=== PATIENT | male | born 1960 | race Caucasian/White ===

== ENCOUNTER 2024-07-27 08:15 | Emergency (ER) | payer MEDICARE, SELFPAY ==
[2024-07-27 08:28] VITALS: BP 159/68; PULSE 120; RESP 18; TEMP 36.7; O2SAT 100
--- NOTE | 2024-07-27 08:34 | ED.EYEPROB ---
HPI - Eye Problem General Chief complaint: Eye Problems Stated complaint: RT Eye irritation Time Seen by Provider: 07/27/24 08:20 Source: patient Mode of arrival: ambulatory Limitations: no limitations History of Present Illness HPI Narrative: Here for one week history of right eye redness. He reports about one week ago that he had yawned and felt something around the right eye pop. He denies pain, itching, feeling of something in the eye. He denies any drainage or fevers. He reports he has been rubbing it too much. He reports some redness around the eye. He reports that over time and with frequently rubbing the eye, his vision has become cloudy. He denies any other complaints or concerns today. Related Data Allergies Allergy/AdvReac Type Severity Reaction Status Date / Time No Known Allergies Allergy Unknown Verified 07/27/24 08:29 Review of Systems Review of Systems: CONSTITUTIONAL: Denies fever, chills, or sweats. EYES: Reports visual changes and redness in the right eye. Denies eye discharge, itch, or pain. Denies feeling of foreign object in eye. ENT: Denies rhinorrhea, congestion, sore throat, or otalgia. CARDIOVASCULAR: Denies chest pain, palpitations, or edema. RESPIRATORY: Denies cough or dyspnea. GASTROINTESTINAL: Denies abdominal pain, nausea, vomiting, or diarrhea. GENITOURINARY: Denies dysuria or hematuria. SKIN: Denies rash or itching. MUSCULOSKELETAL: Denies back pain, joint pain, or myalgia. NEUROLOGIC: Denies headache, numbness, or weakness. PSYCHIATRIC: Denies anxiety or depression. All other systems reviewed are negative, except as documented in HPI. Exam Narrative: GENERAL: This is a well-nourished, well-developed patient, in no apparent distress. HEAD: normocephalic, atraumatic. EYES: PERRL. Sclera left clear/white. Sclera redness in right eye. Periorbital patches of erythema. No edema. EARS: External ears normal. Hearing grossly intact. NOSE: External nose normal no rhinorrhea. NECK: Trachea midline. CARDIOVASCULAR: Regular rate and rhythm without murmurs, gallops, or rubs. RESPIRATORY: Clear to auscultation. Breath sounds equal bilaterally. No wheezes, rales, or rhonchi. SKIN: warm, Dry, intact with no suspicious lesions or rash, good texture and turgor. NEURO: awake, alert, and oriented to person, place and time. There were no obvious focal neurologic abnormalities. EXTREMITIES: No joint tenderness, effusion, or edema noted. BACK: Nontender without deformity. Course Course Level of Care: Express Care Visit Vital Signs Vital signs: Vital Signs Temperature 36.7 C 07/27/24 08:28 Pulse Rate 120 H 07/27/24 08:28 Respiratory Rate 18 07/27/24 08:28 Blood Pressure 159/68 H 07/27/24 08:28 Pulse Oximetry 100 07/27/24 08:28 Oxygen Delivery Room Air 07/27/24 08:28 Temperature 36.7 C 07/27/24 08:28 Pulse Rate 120 H 07/27/24 08:28 Respiratory Rate 18 07/27/24 08:28 Blood Pressure 159/68 H 07/27/24 08:28 Pulse Oximetry 100 07/27/24 08:28 Oxygen Delivery Room Air 07/27/24 08:28 Reviewed. Patient reports he gets nervous for appointments and his BP and pulse go up. He reports his PCP is aware that this is his normal. MDM - Eye Problem MDM Narrative Medical decision making narrative: Right eye with sclera redness. No periorbital edema. Denies any pain or itching. Endorses he has been rubbing his eye a lot. No foreign body feeling. No discomfort in the eye. Discharge Plan Discharge Clinical Impression: Allergic conjunctivitis Qualifiers: Laterality: right Qualified Code(s): H10.11 - Acute atopic conjunctivitis, right eye Patient Disposition: Home Condition: Stable Instructions: Conjunctivitis (ED) Additional Instructions: Take medications as prescribed.? Follow printed instructions provided. Follow-up with eye doctor such as [facility]. Go to the ER for any worsening symptoms or concerns. Patient Language: Marshallese Prescriptions: New azelastine 0.05 % drops 1 drp EACH EYE BID Qty: 6 0RF Follow-up/Referrals: Darren,DO Titus [Primary Care Provider] - Time of Disposition: 08:50
--- OUTSIDE RECORDS SUMMARY | 2024-07-27 08:44 | XMS_ITS | Clinical Summary ---
Author Organization [facility] Address [address] [place] [id number] Care Team Providers Care [employer] Vice Principal Name Role Phone Titus Banks DO Primary Care Provide r Sukhjinder Limon MD Unavailable [phone] Allergies No known active allergies Medications hydroCHLOROthia zide (HYDRODIURIL) 12.5 mg tablet Take 1 tablet (12.5 mg total) by mouth every morning 06/11/2023 Active lisinopriL (PRINIVIL,ZESTR IL) 40 mg tablet Take 1 tablet (40 mg total) by mouth daily 06/13/2023 Active piroxicam (FELDENE) 20 mg capsule Take 1 capsule (20 mg total) by mouth daily 05/20/2023 Active Active Problems Problem Noted Date Diagnosed Date Positive colorectal cancer screening using Colog uard test 02/18/2023 Left nephrolithiasis 01/31/2018 Systolic murmur 01/21/2018 Increased glucose level 12/25/2017 Motion sickness 05/22/2016 Arthritis 09/18/2013 Hypertension 09/18/2013 Knee pain 09/18/2013 Immunizations Immunization Administration Dates Next Due Influenza, Quadrivalent, Spl it, Preservative Free, Intramuscular 03/11/2019,02/18/2015 Influenza, Trivalent, High D ose, Split, Preservative Free, Intramuscular 02/24/2018 Tdap 03/11/2019 Social History Tobacco Use Types Packs/Day Years Used Date Smoking Tobacco: Never Tobacco Cessation:Counseling Given: Not Answered Personal Safety Answer Date Recorded Getting School Help Needed Not on file 04/12 Sex and Gender Information Value Date Recorded Sex Assigned at Not on file Legal Sex Male 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 Gender Identity Not on file Sexual Orientation Not on file Obstetrics History Last Filed Vital Signs Vital Sign Reading Time Taken Comments Blood Pressure - - Pulse - - Temperature - - Respiratory Rate - - Oxygen Saturation - - Inhaled Oxygen Concentration - - Weight 73.5 kg (162 lb) 06/28/2023 8:15 AM CDT Height 172.7 cm (5' 8 ) 06/28/2023 8:15 AM CDT Body Mass Index 24.63 06/28/2023 8:15 AM CDT Plan of Treatment Health Maintenance Due Date Last Done Comments Colon Cancer Screening-Colonoscopy 1958 Depression Screening 1958 Fall Risk Assessment 1958 Hepatitis C Screening 1958 Prostate Cancer Screening-PSA 1958 Hepatitis B Screening 1976 Pneumococcal vaccine 65+ (1 of 1 - PCV) 2008 Zoster Vaccine (1 of 2) 2008 Abdominal Aortic Aneurysm (A AA) Screen 2023 Well Visit 65+ 2023 Covid-19 Vaccine ( season) 2023, 02/02/2021 Influenza Vaccine (Season Ended) 2024 03/11/2019, 02/24/2018, 02/18/2015 DTaP/Tdap/Td Vaccine (2 - Td or Tdap) 03/11/202907/2018 Insurance MEDICARE [facility] MEDICARE Care Teams High School Vice Principal Relationship Specialty Start Date End Date Titus Banks DO [address] [place] [address] [phone] PCP - General Family Medicine 02/27/23 Sukhjinder Limon MD [address] [place] [address] [place] [address] Orthopedic Surgery 02/27/23
--- OUTSIDE RECORDS SUMMARY | 2024-07-27 08:44 | XMS_ITS | Clinical Summary ---
Author Organization [facility] Address [address] [place] [address] Care Team Providers Care Finisher Card Tender Name Role Phone Tha Montes MD Unavailable [phone] Titus Banks DO Primary Care Provider + Allergies No known active allergies Medications lisinopril (PRINIVIL) 40 MG tabletIndications:E ssential hypertension take 1 tablet by mouth every day 90 tablet 1 4 Active rosuvastatin (CRESTOR) 5 MG tabletIndications:H yperlipidemia, unspecified hyperlipidemia type TAKE 1 TABLET BY MOUTH NIGHTLY AT BEDTIME. 90 tablet 5 Active piroxicam (FELDENE) 20 MG capsuleIndications: Arthritis TAKE 1 CAPSULE BY MOUTH EVERY DAY 90 capsule 1 5 Active hydroCHLOROthiazide (MICROZIDE) 12.5 MG tabletIndications:E ssential hypertension TAKE 1 TABLET BY MOUTH EVERY MORNING 90 tablet 5 Active Active Problems Problem Noted Date Diagnosed Date Positive colorectal cancer screening using Colog uard test 02/18/2023 BMI 25.0-25.9,adult 03/11/2019 Left nephrolithiasis 01/31/2018 Systolic murmur 01/21/2018 Increased glucose level 12/25/2017 Motion sickness 05/22/2016 Arthritis 09/18/2013 Hypertension 09/18/2013 Knee pain 09/18/2013 Resolved Problems Problem Noted Date Diagnosed Date Resolved Date Encounter for screening for lipid disorder 02/18/2015 12/18/2019 Encounter for screening for other suspected endocrine disorder 02/18/2015 12/18/2019 Influenza vaccine needed 02/18/201502/2020 Encounters Date Type Department Care Team Description 07/06/2024 7:00 AM CDT Office Visit [facility] [address] [address] Titus Banks P, DO Hypertension; Hyperlipidemia (6 month f/u) 07/06/2024 Travel 07/01/2024 Patient Outreach [facility] [address] [address] Titus Banks, DO Pre-visit Gap Closure from Last 3 Months Immunizations Immunization Administration Dates Next Due Fluzone 6 Months+ Quad (0.5 mL Prefilled Syringe ) 07/04/2023,03/11/2019 Fluzone High Dose - >Age 65 (Prefilled Syringe) 02/24/2018 Influenza Adult (Generic) 02/18/2015 PFIZER COVID-19 (ORIGINAL FO RMULATION, PURPLE CAP) mRNA, LNP-S, PF, 30 MCG/0.3 ML DOSE 02/23/2021,02/02/2021 Pneumococcal (Prevnar 20) 07/04/2023 Tdap (Boostrix) 03/11/2019 Family History Medical History Relation Comments Heart Attack Brother Heart Attack Father Hypertension Father Breast Cancer Mother stomach cancer Mother Diabetes Other Hypertension Other Stroke Other Relation Status Comments Brother (Age 70) Father Mother Other Social History Tobacco Use Types Packs/Day Years Used Date Smoking Tobacco: Never Passive Smoke Exposure: Never Smokeless Tobacco: Never Tobacco Cessation:Counseling Given: Not Answered Comments:Never Smoked Alcohol Use Standard Drinks/Week Comments No 0 (1 standard drink = 0.6 oz pur e alcohol) none AUDIT-C Answer Date Recorded Frequency of Alcohol Consumption Never 02/24/2018 Average Number of Drinks Not on file 018 Frequency of Binge Drinking Not on file 02/06 PHQ-2 Answer Date Recorded Patient Health Questionnaire-2 Score 0 07/06/2024 Sex and Gender Information Value Date Recorded Sex Assigned at Male 05/23/2018 11:40 AM SYSTEMS SECURITY ANALYST Legal Sex Male 8:44 PM CDT Gender Identity Male 05/23/2018 11:40 AM SYSTEMS SECURITY ANALYST Sexual Orientation Straight 05/23/2018 11 :40 AM SYSTEMS SECURITY ANALYST 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 on file Not on file Not on file Last Filed Vital Signs Vital Sign Reading Time Taken Comments Blood Pressure 130/78 07/06/2024 7:11 AM CDT Pulse 70 07/06/2024 7:11 AM CDT Temperature 36.5 C (97.7 F) 07/06/2024 7:11 AM CDT Respiratory Rate 16 07/06/2024 7:11 AM CDT Oxygen Saturation 95% 07/06/2024 7:11 AM CDT Inhaled Oxygen Concentration - - Weight 76.2 kg (168 lb) 07/06/2024 7:11 AM CDT Height 172.7 cm (5' 8 ) 07/06/2024 7:11 AM CDT Body Mass Index 25.54 07/06/2024 7:11 AM CDT Plan of Treatment Upcoming Encounters Date Type Department Care Team (Late st Contact Info) Description 01/07/2025 7:20 AM CDT Laboratory Only [facility] [address] [address] Titus Banks, [facility] [place] [address] 01/14/2025 7:00 AM CDT Office Visit [facility] [address] [phone] Titus Banks DO [address] [place] [address] Health Maintenance Due Date Last Done Comments Annual Medicare Wellness Visit 2023 COVID-19 Vaccine (2023-2 5 season) 2025 02/23/2021, 02/02/2021 Postponed from 12/08/2023 (Going to Outside Clinic) Zoster Vaccines (1 of 2) 01/05/2025 Pos tponed from 2008 (Going to Outside Clinic) Colorectal Cancer Screening Colonoscopy (10 Years) 03/15/2026 03/15/2023 DTaP, Tdap and Td Vaccines ( 2 - Td or Tdap) 03/11/2029 03/11/2019 RSV Immunization or 60+ Years (1 - 1-dose 75+ series) 2033 Hepatitis C Completed 04/13/2019 Colorectal Cancer Screening FIT-DNA (3 Years) Discontinued 11/08/2022, 11/08/2022, 05/18/2019 Pneumococcal Vaccine: 50+ Years Completed 07/04/2023 PHQ-2 (Physician [place]) Completed 07/06/2024 Meningococcal B Vaccine Aged Out No l onger eligible based on patient's age to complete this topic Meningococcal Vaccine Aged Out No urban logan eligible based on patient's age to complete this topic RSV Immunizations Under 20 Months Aged Out No longer eligible b ased on patient's age to complete this topic Procedures Procedure Name Priority Date/Time Associated Diagnosis Comments COLOGUARD (exsulin SCIENCE) Routine 11/08/2022 7:18 AM CDT Screening for malignant neoplasm of colon HEPATITIS C ANTIBODY Routine 04/13/2019 8:01 AM SYSTEMS SECURITY ANALYST from Last 3 Months or Most Recently Relevant to Health Maintenance Results * (ABNORMAL) COLOGUARD (exsulin SCIENCE) (11/08/2022 7:18 AM CDT) COLOGUARD RESULT Positive( A) Negative [facility] (CLIA #:[id number]) Comment: POSITIVE TEST RESULT. A positive Cologuard result should be followed with a colonoscopy or visual examination of the colon. The normal value (reference range) for this assay is negative. TEST DESCRIPTION: Composite algorithmic analysis of stool DNA-biomarkers with hemoglobin immunoassay. Quantitative values of individual biomarkers are not reportable and are not associated with individual biomarker result reference ranges. Cologuard is intended for colorectal cancer screening of adults of either sex, 45 years or older, who are at average-risk for colorectal cancer (CRC). Cologuard has been approved for use by the U.S. FDA. The performance of Cologuard was established in a cross sectional study of average-risk adults aged 50-84. Cologuard performance in patients ages 45 to 49 years was estimated by sub-group analysis of near-age groups. Colonoscopies performed for a positive result may find as the most clinically significant lesion: colorectal cancer [4.0%], advanced adenoma (including sessile serrated polyps greater than or equal to 1cm diameter) [20%] or non- advanced adenoma [31%]; or no colorectal neoplasia [45%]. These estimates are derived from a prospective cross-sectional screening study of 10,000 individuals at average risk for colorectal cancer who were screened with both Cologuard and colonoscopy. (Maria Elena Ruiz al, N Engl J Med 2014;370(14):9030-1097.) Cologuard may produce a false negative or false positive result (no colorectal cancer or precancerous polyp present at colonoscopy follow up). A negative Cologuard test result does not guarantee the absence of CRC or advanced adenoma (pre-cancer). The current Cologuard screening interval is every 3 years. ([place] Cancer Society and U.S. Multi-Society Task Force). Cologuard performance data in a 10,000 patient pivotal study using colonoscopy as the reference method can be accessed at the following location: www.[employer]/results. Additional description of the Cologuard test process, warnings and precautions can be found at www.[employer]. STOOL STOOL SPECIMEN / Unknown 11/08/2022 7:18 AM CDT 11/09/2022 9:51 PM CDT Titus Banks DO BODY FLUIDS AND STOOLS O RDERABLES Final Result [facility] [address] [place] [address], [facility] (CLIA #:[id number]) [address] [place] [address] * HEPATITIS C ANTIBODY (04/13/2019 8:01 AM SYSTEMS SECURITY ANALYST) HEPATITIS C AB NON-REACT AXEL NON-REACT AXEL [facility] SIGNAL TO CUTOFF 0.04 <1.00 [facility] Comment: HCV antibody was non-reactive. There is no laboratory evidence of HCV infection. In most cases, no further action is required. However, if recent HCV exposure is suspected, a test for HCV RNA (test code 95845) is suggested. For additional information please refer to http://education.[employer]/faq/CEG36s0 (This link is being provided for informational/ educational purposes only.) 04/13/2019 8:01 AM SYSTEMS SECURITY ANALYST 04/13/2019 8:01 AM SYSTEMS SECURITY ANALYST Narrative Resulting Agency Comment Performing Organization Information: Site ID: NORY Name: [facility] Address: [address] [place] [id number] Director: Fabio Corey D.O., MPH Titus Banks DO LABORATORY Final Re sult [facility] from Last 3 Months or Most Recently Relevant to Health Maintenance Insurance MEDICARE [facility] Care Teams Finisher Card Tender Relationship Specialty Start Date End Date Titus Banks DO [address] [place] [phone] PCP - General FAMILY PRACTICE 05/23/18 Tha Montes MD [facility] [address] [place] [address] [place] Interline Clerk INTERVENTIONAL CARDIOLOGY 04/15/18
--- OUTSIDE RECORDS SUMMARY | 2024-07-27 08:44 | XMS_ITS | Referral Summary ---
Author Organization [facility] Address [address] [place] [phone] Care Team Providers Care Store Assistant Name Role Phone Titus Banks DO Primary Care Provide r Sukhjinder Limon MD Unavailable [phone] Allergies No known active allergies Medications [...] on file Legal Sex Male 1:00 PM PHOTOVOLTAIC FABRICATION TECHNICIAN Gender Identity Not on file Sexual Orientation Not on file Last Filed Vital Signs [...] 06/28/2023 8:15 AM CDT Plan of Treatment Not on file Insurance MEDICARE [employer] Member Subscriber Plan / Payer (Ef fective 2023-Present) Name:David Valadez Relation to Subscriber:Self Name:David Valadez Payer ID:[id number] Group ID:Not on file Type:[facility] [employer] Address: [address] [place] [address] [facility] MEDICARE Care Teams Store Assistant Relationship Specialty Start Date End Date Titus Banks DO [address] [place] [phone] PCP - General Family Medicine 02/27/23 Sukhjinder Limon MD [address] [place] [address] Orthopedic Surgery 02/27/23
== END 2024-07-27 08:54 | disposition home or self-care (01) ==
PROVIDERS: Emergency Provider Nurse Practitioner; PCP Student in an Organized Health Care Education/Training Program
DX: H10.11 Acute atopic conjunctivitis, right eye (principal)
CPT/HCPCS: 99203; G0463